=== PATIENT | female | born 1990 | race African-American/Black ===

== ENCOUNTER 2016-09-24 15:20 | Emergency (ER) | payer OTHER ==
--- NOTE | ~2016-09-24 | EKG ---
PATIENT: LOU HEADLEY UNIT #: [id number] Ventricular Rate: 75 BPM Atrial Rate: 75 BPM P-R Interval: 112 ms QRS Duration: 88 ms Q-T Interval: 418 ms QTC Calculation(Bezet): 466 ms P Hewitt: 9 degrees Calculated R Hewitt: 70 degrees Calculated T Hewitt: 30 degrees Diagnosis Line: Normal sinus rhythm Diagnosis Line: Normal ECG Diagnosis Line: No previous ECGs available Diagnosis Line: Confirmed by GERI MILLS MD ([id number]) on Diagnosis Line: 09/24/2016 9:38:09 PM INTERPRETING MD: LUIS
--- NOTE | ~2016-09-24 | CR63 ---
[facility] A Service of [facility] & [facility] RADIOLOGY TEXT RESULTS PATIENT: LOU HEADLEY LOCATION: CFTX : 90 UNIT #: [id number] AGE: [address]: Ritu Azevedo SEX: F ORDER DR: [id number] [facility] [address] [place], [place] [address] [id number] MR#: [id number] Acc #: [id number] NAME: LOU HEADLEY : 1990 SEX: F STUDY DATE/TIME: 09/24/2016 15:01 UNIT: [facility] ROOM: STUDY DESCRIPTION: CR Chest 2 View Attending Physician: Ritu Azevedo P.A.-C. Ordering Physician: Ritu Azevedo P.A.-C. Primary Care Physician: No Primary Care Physician MEDICAL IMAGING REPORT This report is preliminary unless electronic signature is present EXAM Chest 09/24/2016 HISTORY 26-year-old female patient short of air and cough. Symptoms began today. Patient is smoker. COMPARISON STUDIES Comparison chest none. FINDINGS Two-view chest demonstrates normal cardiac size and configuration. Hilar structures and mediastinal contours are preserved. Bilateral lungs are expanded and clear. Costophrenic angles are clear. Bony thorax is intact. IMPRESSION Negative chest. Dictated by... Orville Vizcarra M.D. THIS IS AN ELECTRONICALLY VERIFIED REPORT Orville Vizcarra M.D. at 09/25/2016 8:27 AM Radhika TD: 09/24/2016 16:37 JOB #: [id number] MEDICAL IMAGING REPORT Page 1 of 1 COPY
[2016-09-24 15:00] LABS: BASOPHIL% 0.4 % (0-2.5); DIFF IND NO; EOSINOPHIL% 0.2 % (0.0-7.0); HEMATOCRIT 34.9 % (35.0-45.0); HEMOGLOBIN 10.9 gm/dL (12.0-16.0); LYMPHOCYTE# 1.7 X10e3 (1.0-3.5); LYMPHOCYTE% 17.6 % (17.0-45.0); MEAN CELL VOLUME 77.8 FL (83-96); MEAN CORPUSCULAR HEMOGLOBIN 24.2 PG (28-34); MEAN CORPUSCULAR HGB CONC 31.1 g/dL (30-36); MEAN PLATELET VOLUME 8.7 FL (6.5-11.5); MONOCYTE# 0.6 X10e3 (0-1.0); NEUTROPHIL# 7.2 X10e3 (1.5-7.1); NEUTROPHIL% 75.8 % (40-75); PLATELET COUNT 310 X10e3 (140-420); RED BLOOD COUNT 4.49 X10e (3.90-5.30); RED CELL DISTRIBUTION WIDTH 18.6 % (11.0-15.5); WHITE BLOOD COUNT 9.5 X10e3 (4.0-10.5)
[2016-09-24 15:12] LABS: AMPHETAMINE NEG (NEG); BARBITURATES NEG (NEG); BENZODIAZEPINES NEG (NEG); COCAINE POS (NEG); MARIJUANA POS (NEG); OPIATES NEG (NEG); TRICYCLIC ANTIDEPRESSANTS NEG (NEG); U METHADONE NEG (NEG)
[2016-09-24 15:19] LABS: POC - CKMB <1.0 ng/mL (0.0-7.9); POC - TROPONIN <0.05 ng/mL (<=0.05)
[2016-09-24 15:29] LABS: CALCIUM SERUM 8.9 mg/dL (8.4-10.2); CREATININE SERUM 0.6 mg/dL (0.6-1.4); GLOM FILT RATE Estimated 145.8 mL/min (>60); MAGNESIUM 1.9 mg/dL (1.6-3.0); POTASSIUM 3.7 mmol/L (3.5-5.1)
== END 2016-09-24 16:07 | disposition home or self-care (01) ==
LOC: CFTX 15:20
PROVIDERS: Physician Assistant
DX: R00.2 Palpitations (principal); F19.10 Other psychoactive substance abuse, uncomplicated; R06.02 Shortness of breath; F17.210 Nicotine dependence, cigarettes, uncomplicated
CPT/HCPCS: 36415; 71020; 80048; 80307; 82553; 83735; 84484; 84703; 85025; 93005; 99284